=== PATIENT | male | born 1995 | race Caucasian/White ===

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

== ENCOUNTER 2018-05-16 12:47 | Emergency (ER) | payer MEDICAID, OTHER ==
[2018-05-16 12:47] VITALS: BMI 24.1
[2018-05-16 13:14] VITALS: BP 105/70; PULSE 81; RESP 20; TEMP 98.5; O2SAT 100
--- NOTE | 2018-05-16 14:31 | C.PDOC ---
History Of Present Illness Upon attempting to evaluate patient, chair was found empty. Patient was called 3x with no response. Time Seen by Provider: 05/16/18 13:17 Chief Complaint (Nursing): Abnormal Skin Integrity Past Medical History Vital Signs: Last Vital Signs Temp 98.5 F 05/16/18 13:09 Pulse 81 05/16/18 13:09 Resp 20 05/16/18 13:09 BP 105/70 05/16/18 13:09 Pulse Ox 100 05/16/18 13:09 - Medical History PMH: Back Problems - Social History Hx Alcohol Use: No Hx Substance Use: No - Immunization History Hx Tetanus Toxoid Vaccination: No Hx Influenza Vaccination: No Hx Pneumococcal Vaccination: No ED Course And Treatment O2 Sat by Pulse Oximetry: 100 Disposition - Disposition Disposition: ELOPEMENT - ER ONLY Disposition Time: 14:00 Condition: UNKNOWN
== END 2018-05-16 14:30 | disposition left against medical advice (07) ==
LOC: C.ER 12:47
DX: Z02.89 Encounter for other administrative examinations (principal); R21 Rash and other nonspecific skin eruption

== ENCOUNTER 2018-09-11 15:42 | Emergency (ER) | payer OTHER, MEDICAID | END 2018-09-11 16:35 | disposition home or self-care (01) | LOC: C.ER 15:42 ==